=== PATIENT | female | born 1990 | race Hispanic/Latino ===

== ENCOUNTER 2021-06-13 19:50 | Emergency (ER) | payer OTHER ==
[~2021-06-13] VITALS: Ht 162.6 cm; Wt 120.2 kg
[2021-06-13] MEDS ORDERED: TETANUS/DIPHTHERIA TOX ADULT 0.5 ML SYR IM ONE (21:15)
[2021-06-13] MEDS ORDERED: ERYTHROMYCIN OP (22:26)
== END 2021-06-13 23:31 | disposition home or self-care (01) ==
LOC: FSED 20:12
DX: S05.02XA Injury of conjunctiva and corneal abrasion without foreign body, left eye, initial encounter (principal); Y04.0XXA Assault by unarmed brawl or fight, initial encounter
CPT/HCPCS: 70480; 99283

== ENCOUNTER 2025-05-19 12:34 | Emergency (ER) | payer OTHER ==
[~2025-05-19] VITALS: Ht 162.6 cm; Wt 145.1 kg
[~2025-05-19 12:34] MED LIST: ERYTHROMYCIN OP
[2025-05-19] MEDS ORDERED: IOPAMIDOL 370 MG/ML 100 ML INFUS..BTL INJ ONE (13:41)
[2025-05-19] MEDS: ONDANSETRON HCL INJ 2MG/ML 2ML 2 MG/ML VIAL IV STA (14:52)
[2025-05-19] MEDS: SODIUM CHLORIDE 0.9% 1000ML 1,000 ML IV ONE (14:53)
[2025-05-19] MEDS: KETOROLAC TROMETHAMINE 30 MG/ML VIAL IV STA (14:53)
[2025-05-19 16:00] VITALS: PULSE 70; RESP 18; TEMP 98.4; O2SAT 98
== END 2025-05-19 16:07 | disposition home or self-care (01) ==
LOC: FSED 12:45
DX: R10.32 Left lower quadrant pain (principal); A08.4 Viral intestinal infection, unspecified; K64.9 Unspecified hemorrhoids; F17.210 Nicotine dependence, cigarettes, uncomplicated
CPT/HCPCS: 74177; 99284; J1885; J2405; J7030; Q9967